=== PATIENT | male | born 2000 | race Caucasian/White ===

== ENCOUNTER 2020-09-17 17:10 | Emergency (ER) | payer BC, SELFPAY ==
[2020-09-17 17:15] VITALS: BP 114/65; PULSE 74; RESP 17; TEMP 36.6; O2SAT 98; BMI 18.6
--- NOTE | 2020-09-17 17:23 | XR_ITS ---
PROCEDURE: XR HAND RT MIN 3V CLINICAL INDICATION: HIT HAND ON CEILING FAN Injury with pain COMPARISON: No exams were available for comparison FINDINGS: No fracture or dislocation. No lytic or blastic change. There is normal mineralization. The joint spaces are well-preserved. No significant degenerative/arthritic changes. No erosive changes evident. Other findings:None. IMPRESSION: No acute findings. Dictated by: Han Griffith MD 09/18/2020 05:05 Han Griffith MD in [place] 09/18/2020 05:05
--- NOTE | 2020-09-17 17:27 | HMH.EDUTC ---
[facility] [place] Disposition Clinical Impression: Hand contusion Qualifiers: Encounter type: initial encounter Laterality: right Qualified Code(s): S60.221A - Contusion of right hand, initial encounter Disposition: Home, Self-Care Condition on Discharge: Good Instructions: DI for Contusion Additional Instructions: *RICE, Rest the extremity, Ice 15-20 minutes 3-4 times daily, Compress- wear the pancho wrap as discussed as much as possible to help reduce swelling and pain, Elevate the extremity when at rest *Pancho wrap is for support and help control swelling, use it except in the shower. Be sure that is not to tight but not to loose either *Elevate when resting *Ibuprofen every 6-8 hours as needed for pain an inflammation. If need something more can take Tylenol in between doses of Ibuprofen to help Immediately follow up with your family doctor for new or worsening of symptoms, or no noticeable improvement over the next 3-5 days May call back to the [facility] later today or tomorrow for the official reading of your xray Return it needed Follow up with Family doctor if needed Referrals: Janusz Tran MD [Primary Care Provider] - As needed Time of Disposition: 17:40 Medical Decision Making - Manny Inquiry Pt receiving controlled substance: No Manny was queried for this patient: No Vital Signs: 09/17/20 17:15 Temperature 97.8 F Temperature Source Oral Pulse Rate [Left Brachial] 74 Respiratory Rate 17 Blood Pressure [Left Arm] 114/65 Blood Pressure Mean [Left Arm] 81 Blood Pressure Source [Left Arm] Automatic Cuff Blood Pressure Position [Left Arm] Sitting 02 Sat by Pulse Oximetry 98 Oxygen Delivery Method Room Air Orders (Tests/Meds): ORDERS Category Date Time Status XR hand RT min 3V Stat Exams 09/17/20 17:23 Ordered [facility] [place] HPI - General Stated complaint: AO injured R hand in a ceileing fan Time Seen by Provider: 09/17/20 17:28 Mode of Arrival: Ambulatory Source of Information: Patient, Parent(s) Limitations: No Limitations Description of Symptoms (Recalled from Triage Doc. by RN): INJURY TO RIGHT HAND AFTER HITTING HIS HAND ON A CEILING FAN APPROX 1600 TODAY HEENT Symptoms (Recalled from RN notes): No Resp Symptoms (Recalled from RN notes): No Skin Symptoms (Recalled from RN notes): No MS Symptoms (Recalled from RN notes): Yes Functional Status (Recalled from RN notes): WNL - History of Present Illness Provider Complaint: Patient states that earlier today he was changing when he accidently raised up his right hand and into the ceiling fan and blade on fan hit him on top of his right hand States he applied ice to it but still had some bruising and swelling so mother brought him in to get it checked - Related Data Home Medications Medication Instructions Recorded Confirmed No Known Home Medications 07/21/19 07/21/19 Allergies Allergy/AdvReac Type Severity Reaction Status Date / Time amoxicillin [AMOXICILLIN] Allergy Mild Verified 07/21/19 16:26 - Worker's Comp Is this a Worker's Comp case?: No [facility] History - Hepatitis A Screen Drug use history?: No High risk sexual behaviors?: No History of sexually transmitted infection?: No Currently employed?: No Childcare worker?: No Do you have indoor plumbing?: Yes Do you have electricity?: Yes Attestation statement:: This patient has been screened for Hepatitis A risk factors. I have reviewed the patient's past medical history: Yes Medical History: Denies:: Diabetes Mellitus Type 1, Diabetes Mellitus Type 2 Other Medical History: Reports: Other Comment: ADHD Laterality Cases: Bilateral: Myringotomy (Ear Tubes) Other Surgeries: Yes: No Previous Surgery Amputation: No - Social History Smoking Status: Never smoker Alcohol Intake: never Substance Use Type: denies use Occupational Status: other Housing: house Household Members: family Family Hx:: Hypertension, Heart Attack, Cancer, Thyroid Disorder, Diabetes ROS Obtained: Yes All systems
[2020-09-17 17:41] VITALS: BP 114/65; PULSE 74; RESP 14; TEMP 36.6; O2SAT 98
== END 2020-09-17 17:45 | disposition home or self-care (01) ==
PROVIDERS: Emergency Provider Nurse Practitioner; PCP Family Medicine
DX: S60.221A Contusion of right hand, initial encounter (principal); W22.8XXA Striking against or struck by other objects, initial encounter; Y92.019 Unspecified place in single-family (private) house as the place of occurrence of the external cause
CPT/HCPCS: 73130; 99202; G0463

== ENCOUNTER → 2021-06-19 16:52 | Outpatient (CLI) | payer BC, SELFPAY | PROVIDERS: Visit Provider Nurse Practitioner | DX: Z20.822 Contact with and (suspected) exposure to COVID-19 (principal) | CPT/HCPCS: C9803; U0003; U0005 ==

== ENCOUNTER 2023-07-06 20:26 | Outpatient (CLI) | payer BC, SELFPAY | END 2023-07-06 23:59 | LOC: LAB.DROPOF 20:27 | PROVIDERS: PCP Student in an Organized Health Care Education/Training Program; Visit Provider Student in an Organized Health Care Education/Training Program | DX: J02.9 Acute pharyngitis, unspecified (principal); R05.8 Other specified cough; R51.9 Headache, unspecified; R09.81 Nasal congestion | CPT/HCPCS: 87070; 87635 ==

== ENCOUNTER 2025-04-27 17:42 | Emergency (ER) | payer SELFPAY ==
[2025-04-27 17:49] VITALS: BP 145/78; PULSE 84; RESP 20; TEMP 36.9; O2SAT 100; BMI 24.2
--- NOTE | 2025-04-27 17:55 | XR_ITS ---
PROCEDURE INFORMATION: Exam: XR Left Tibia and Fibula Exam date and time: 04/27/2025 6:14 PM Age: 24 years old Clinical indication: Injury or trauma; Other: Twisted ankle; Other: Pain; Additional info: Possible injury TECHNIQUE: Imaging protocol: Radiologic exam of the left tibia and fibula. Views: 2 views. Total images: 2 COMPARISON: CR XR TIBIA FIBULA LT 2V 04/27/2025 6:14 PM FINDINGS: Bones/joints: No evidence of acute fracture or dislocation. Soft tissues: Soft tissues are within normal limits. IMPRESSION: No evidence of acute fracture or dislocation.
--- NOTE | 2025-04-27 17:55 | XR_ITS ---
PROCEDURE INFORMATION: Exam: XR Left Ankle Exam date and time: 04/27/2025 6:14 PM Age: 24 years old Clinical indication: Injury or trauma; Other: Twisted ankle; Other: Pain; Additional info: Possible injury TECHNIQUE: Imaging protocol: Radiologic exam of the left ankle. Views: 3 or more views. Total images: 3 COMPARISON: CR XR ANKLE LT MIN 3V 04/27/2025 6:14 PM FINDINGS: Bones/joints: No evidence of acute fracture or dislocation. Soft tissues: Lateral soft tissue swelling. IMPRESSION: 1. No evidence of acute fracture or dislocation. 2. Lateral soft tissue swelling.
--- NOTE | 2025-04-27 18:44 | HMH.EDGENADL ---
Discharge Plan Disposition Patient Disposition: Home, Self-Care Condition: Good Prescriptions Prescriptions: No Action pseudoephedrine HCl [Sudafed 12 Hour] 120 mg tablet extended release 120 mg PO Q12H PRN (Reason: nasal congestion) Qty: 20 0RF Referrals Follow up/Referrals: Nic Wilder DO [Staff Physician, Orthopedics] - See instructions Yana Ervin APRN [Primary Care Provider, Family Practice] - See instructions Activity Restrictions/Add. Instructions Additional Instructions/Restrictions: You were evaluated in the emergency department today. At this time, we do not see a broken bone on your x-ray. If you continue to have significant pain, please follow-up outpatient with either primary care or with orthopedics. You will need to call to schedule an appointment. Use the walking boot as needed for support since you are having pain with bearing weight. Take Tylenol and ibuprofen as needed for pain. Rest, ice, and elevate your leg to reduce pain and swelling. Return to the emergency department for new or worsening symptoms. Clinical Impressions Clinical Impression: Left ankle sprain Stand Alone Forms Stand Alone Forms: Work/School Release Instructions Patient Instructions: DI for Ankle Sprain Print Language Print Language: Mohawk Discharge ED Provider: Tri Davies General Adult HPI General Chief complaint: Extremity Injury, Lower Stated complaint: AO - hurt left ankle Time Seen by Provider: 04/27/25 18:10 Mode of Arrival: Ambulatory Source of Information: Patient and Relative Description of Symptoms (Recalled from ER Triage Doc. by RN): patient stated he was trying to step onto a concrete slab and rolled his ankle. ROM intact, hurts mostly when bearing weight. rates the pain 7/10 currently. History of Present Illness HPI narrative: This patient is a 24-year-old male who denies significant past medical history presenting to the emergency department for evaluation with concern for left ankle injury. He notes that he rolled it earlier this morning and has been trouble bearing weight on it since then. No other concerns or complaints reported Related Data Previous Rx's ?Medication ?Instructions ?Recorded pseudoephedrine HCl 120 mg 120 mg PO Q12H PRN nasal 03/14/25 tablet,extended release (Sudafed congestion #20 tabs 12 Hour) Allergies Allergy/AdvReac Type Severity Reaction Status Date / Time amoxicillin (AMOXICILLIN) Allergy Mild Verified 01/31/25 08:59 [facility] Disclaimer: The information contained in this section may have been updated after the patient was seen, as this information can be updated by other users. Medical History Sinusitis No significant past medical history Surgical History No significant past surgical history Family History Other No significant family history Social History Smoking Status: Light tobacco smoker alcohol intake: never substance use type: denies use current occupational status: other Travel in the last 8 weeks?: None household members: family housing: house Have you lived/traveled outside [place] in past 30 days?: No Contact w/someone who lives/traveled outside US past 30 days?: No Exposure to someone with infectious disease in past 14 days?: No Do you have a fever (greater than 100.4 F or 38 C)?: No Have you tested positive for COVID-19?: No Exposed to someone with COVID-19 in past 14 days?: No Do you have a sore throat?: No Do you have a cough?: No Do you have any weakness?: No Do you have any diarrhea?: No Are you experiencing any unusual bleeding?: No Do you have any muscle aches/pain?: No Do you have any abdominal pain?: No Are you experiencing loss of taste or smell?: No Other Medical History Have you received the Flu Vaccine for this season: No Have you received the Pneumonia Vaccine: No ROS Obtained: Yes All systems reviewed & no additional complaints except as documented Physical Exam General General appearance: alert and in no apparent distress Head Head exam: atraumatic and normocephalic Eye Eye exam: Present normal appearance, PERRL and EOMI ENT ENT exam: Present normal exam, normal oropharynx, mucous membranes moist and normal external ear exam Neck Neck exam: Present normal inspection, full ROM and trachea midline; Absent tenderness Chest Chest inspection: Present normal inspection and symmetric chest wall rise; Absent tenderness Respiratory Respiratory exam: Present normal lung sounds bilaterally; Absent respiratory distress, wheezes, stridor or accessory muscle use Cardiovascular Cardiovascular exam: Present regular rate and normal rhythm Abdominal Exam Abdominal exam: Present soft; Absent distention, tenderness or guarding Extremities Exam Extremities exam: Present full ROM, tenderness, normal capillary refill, joint swelling and other (Mild left ankle swelling, lateral malleolar tenderness to palpation as well as tenderness palpation of the distal tib-fib. Neurovascularly intact distally. No open wounds) Back Exam Back exam: Present normal inspection and full ROM; Absent tenderness Neurological Exam Neurological exam: Present alert, oriented X3, CN II-XII intact and normal gait; Absent motor sensory deficit Psychiatric Psychiatric exam: Present normal affect and normal mood Skin Skin exam: Present warm and dry Medical Decision Making Medical Records Medical records reviewed: Yes I reviewed the patient's medical records. Screening: Per USPSTF and CDC recommendations, given the prevalence of disease in our region, it is our hospital?s policy to screen for HIV and viral Hepatitis for all patients aged 18 and over and those with ongoing risk factors. Manny Inquiry Pt receiving controlled substance: No Vital Signs: 04/27/25 17:49 04/27/25 19:10 Temperature 98.5 F 98 F Temperature Source Oral Temporal Artery Scan Pulse Rate 86 Pulse Rate [Right Radial] 84 Respiratory Rate 20 18 Blood Pressure 134/85 Blood Pressure [Right Arm] 145/78 H Blood Pressure Mean [Right Arm] 100 Blood Pressure Source Automatic Cuff Blood Pressure Source [Right Arm] Automatic Cuff Blood Pressure Position Sitting Blood Pressure Position [Right Arm] Sitting 02 Sat by Pulse Oximetry 100 Oxygen Delivery Method Room Air Room Air Lab Data Lab results reviewed: Yes I reviewed the patient's lab results. Orders (Tests/Meds): ORDERS Category Date Time Status Tibia/fibula XR left 2 views [XR tibia fibula LT 2V] Exams 04/27/25 17:55 Completed Stat XR ankle LT min 3V Stat Exams 04/27/25 17:55 Completed Medical Decision Narrative: In summary, this patient is a 24-year-old presenting to the Emergency Department for evaluation of left ankle injury. Differential diagnoses considered include but are not limited to fracture, contusion, strain/pain, neurovascular injury. Ruling out the most morbid conditions drove assessment. On exam, patient has left ankle tenderness but is neurovascular intact distally. No open wounds. Workup included x-rays of the left ankle and tib-fib. I independently interpreted x-ray prior to the radiologist read and noted no acute fracture. Please see their read for final interpretation. I think the patient at least has high-grade sprain given degree of swelling and difficulty bearing weight, so he was placed in a walking boot. He is given instructions for close follow-up if he continues to have pain as well as instructions for supportive care. Strict return precautions were given at time of discharge Critical Care Critical Care Time Critical Care Time: No
[2025-04-27 19:10] VITALS: BP 134/85; PULSE 86; RESP 18; TEMP 36.6; O2SAT 98
== END 2025-04-27 19:17 | disposition home or self-care (01) ==
PROVIDERS: Emergency Provider Emergency Medicine; PCP Nurse Practitioner Family
DX: S93.402A Sprain of unspecified ligament of left ankle, initial encounter (principal); X50.1XXA Overexertion from prolonged static or awkward postures, initial encounter
CPT/HCPCS: 73590; 73610; 99283